=== PATIENT | female | born 1995 | race Caucasian/White ===

== ENCOUNTER 2018-02-15 09:49 | Emergency (ER) | payer OTHER | END 2018-02-15 10:37 | disposition home or self-care (01) | LOC: M ED 09:49 | DX: J01.90 Acute sinusitis, unspecified (principal); S46.811A Strain of other muscles, fascia and tendons at shoulder and upper arm level, right arm, initial encounter; X58.XXXA Exposure to other specified factors, initial encounter; Y92.89 Other specified places as the place of occurrence of the external cause | CPT/HCPCS: 99283 ==

== ENCOUNTER 2018-03-23 20:23 | Emergency (ER) | payer OTHER | END 2018-03-23 22:08 | disposition home or self-care (01) | LOC: M ED 20:23 | DX: J02.0 Streptococcal pharyngitis (principal); Z87.891 Personal history of nicotine dependence | CPT/HCPCS: 87880 ==